=== PATIENT | female | born 1960 ===

== ENCOUNTER 2023-07-27 17:59 | Emergency (ER) | payer MEDICAID ==
[~2023-07-27] VITALS: Ht 154.9 cm; Wt 106.8 kg
[2023-07-27 23:03] VITALS: BP 120/62; PULSE 78; RESP 16; TEMP 98.6; O2SAT 98
--- NOTE | 2023-07-27 23:06 | NUR ---
PT ELECTED TO LEAVE THE LOBBY DUE TO EXTENDED WAIT TIME.
== END 2023-07-27 23:08 | disposition left against medical advice (07) ==
LOC: ER 18:00
DX: S01.91XA Laceration without foreign body of unspecified part of head, initial encounter (principal); Z53.21 Procedure and treatment not carried out due to patient leaving prior to being seen by health care provider; W19.XXXA Unspecified fall, initial encounter; Y93.89 Activity, other specified; Y92.89 Other specified places as the place of occurrence of the external cause; Y99.8 Other external cause status
CPT/HCPCS: 70450; 99281